=== PATIENT | male | born 1980 | race Two or more races ===

== ENCOUNTER 2020-12-04 02:12 | Emergency (ER) | payer SELFPAY ==
[~2020-12-04] VITALS: Ht 182.9 cm; Wt 113.4 kg
[2020-12-04 02:15] VITALS: BP 134/70
== END 2020-12-04 02:30 | disposition left against medical advice (07) ==
LOC: EDBD 02:12 → ER 02:15
DX: T50.7X1A Poisoning by analeptics and opioid receptor antagonists, accidental (unintentional), initial encounter (principal); R07.89 Other chest pain; Y92.89 Other specified places as the place of occurrence of the external cause; Z53.21 Procedure and treatment not carried out due to patient leaving prior to being seen by health care provider
CPT/HCPCS: 93005